=== PATIENT | female | born 1945 | race Caucasian/White ===

== ENCOUNTER 2018-03-23 09:24 | Emergency (ER) | payer MEDICARE, OTHER ==
[~2018-03-23] VITALS: Ht 180.3 cm; Wt 96.0 kg
[~2018-03-23 09:24] MED LIST: ALLO300T PO; APIX5TAB PO; DRON400T PO; EZET1TAB35; LOSA1TAB22 PO; LOSA25TA5 PO; OXYC10TA6 PO; OXYC5TAB3 PO; RIVA20TA PO; SENN-52 PO; TEMA15CA6 PO; TIZA4CAP2 PO
[2018-03-23] MEDS ORDERED: VERAPAMIL 2.5 MG/ML, 4ML IVPush ONE (10:00)
[2018-03-23] MEDS ORDERED: SODIUM CHLORIDE 0.9% 1,000ML IVBOLUS ONE (10:00)
[2018-03-23] MEDS ORDERED: SODIUM CHLORIDE FLUSH 10ML SYR IVF ONE (10:00)
[2018-03-23] MEDS ORDERED: VERAPAMIL 2.5 MG/ML, 2ML ONE (10:01)
[2018-03-23 10:12] LABS: BASOPHILS # (AUTO) 0.01 x10^3/uL (0-0.1); BASOPHILS % (AUTO) 0 % (0-1); EOSINOPHILS # (AUTO) 0.07 x10^3/uL (0-0.4); EOSINOPHILS % (AUTO) 2 % (1-7); LYMPHOCYTES # (AUTO) 1.44 x10^3/uL (1-3.4); LYMPHOCYTES % (AUTO) 31 % (22-44); MD NO; MEAN CORPUSCULAR HEMOGLOBIN 32.5 pg (27.0-34.8); MEAN CORPUSCULAR HGB CONC 33.4 g/dL (32.4-35.8); MEAN CORPUSCULAR VOLUME 97.4 fL (80-100); MEAN PLATELET VOLUME 9.9 fL (7.4-10.4); MONOCYTES # (AUTO) 0.41 x10^3/uL (0.2-0.8); MONOCYTES % (AUTO) 9 % (2-9); NEUTROPHILS # (AUTO) 2.74 x10^3/uL (1.8-6.8); NEUTROPHILS % (AUTO) 59 % (42-75); PLATELET COUNT 149 x10^3/uL (130-400); RED BLOOD COUNT 4.18 x10^6/uL (3.82-5.3); RED CELL DISTRIBUTION WIDTH 15.6 % (9.6-15.2)
[2018-03-23 10:24] LABS: INTERNATIONAL NORMALIZED RATIO 1.05 (0.93-1.1); PROTHROMBIN TIME 10.9 Seconds (9.6-11.5)
[2018-03-23] MEDS ORDERED: LOSA1TAB22 PO (10:27)
[2018-03-23] MEDS ORDERED: NITR50CA PO (10:27)
[2018-03-23] MEDS ORDERED: SODIUM CHLORIDE 0.9% IV ONE (10:30)
[2018-03-23] MEDS ORDERED: VERAPAMIL IV ONE (10:30)
[2018-03-23 11:11] LABS: ALBUMIN 3.9 g/dL (3.4-5.0); ANION GAP 10 mmol/L (5-15); CALCIUM 8.7 mg/dL (8.5-10.1); CHLORIDE 111 mmol/L (98-107)
[2018-03-23 11:15] LABS: CREATININE 1.48 mg/dL (0.55-1.02)
[2018-03-23 11:19] LABS: TROPONIN I < 0.015 ng/mL (0.000-0.045)
[2018-03-23 12:38] VITALS: BP 107/60
== END 2018-03-23 12:41 | disposition home or self-care (01) ==
LOC: ED 12:01
DX: I48.0 Paroxysmal atrial fibrillation (principal); I10 Essential (primary) hypertension
CPT/HCPCS: 36415; 71045; 80048; 82040; 84484; 85025; 85610; 85730; 93005; 96374; 99285; J7030

== ENCOUNTER → 2018-05-20 | Outpatient (CLI) | payer MEDICARE, OTHER ==
[~2018-05-20] MED LIST changes: -LOSA25TA5 PO; +LOSA25TA6 PO; +NITR50CA PO
== END | disposition home or self-care (01) ==
LOC: CFH 09:42
PROVIDERS: ATTEND Internal Medicine Cardiovascular Disease
DX: I34.0 Nonrheumatic mitral (valve) insufficiency (principal); I48.0 Paroxysmal atrial fibrillation; I10 Essential (primary) hypertension; Z87.891 Personal history of nicotine dependence
CPT/HCPCS: 93306

== ENCOUNTER 2021-04-19 08:01 | Outpatient (CLI) | payer MEDICARE, OTHER ==
[~2021-04-19 08:01] MED LIST changes: -DRON400T PO; +DRON400T6 PO; +LOSA25TA25 PO; -LOSA25TA6 PO; -OXYC5TAB3 PO; +OXYC5TAB98 PO
== END 2021-04-19 23:59 | disposition home or self-care (01) ==
LOC: ROC 08:01
PROVIDERS: ATTEND Radiology Radiation Oncology
DX: D36.15 Benign neoplasm of peripheral nerves and autonomic nervous system of abdomen (principal)
CPT/HCPCS: G0463

== ENCOUNTER 2021-04-26 08:27 | Outpatient (CLI) | payer MEDICARE, OTHER ==
[2021-04-26] MEDS ORDERED: OMNIPAQUE 350 MG/ML, 100ML BOTTLE ONE (08:45)
== END 2021-04-26 23:59 | disposition home or self-care (01) ==
LOC: CFH 08:27
PROVIDERS: ATTEND Radiology Radiation Oncology
DX: D20.0 Benign neoplasm of soft tissue of retroperitoneum (principal); K57.30 Diverticulosis of large intestine without perforation or abscess without bleeding; J84.10 Pulmonary fibrosis, unspecified; N28.1 Cyst of kidney, acquired
CPT/HCPCS: 74177; Q9967